=== PATIENT | female | born 1990 | race Hispanic/Latino ===

== ENCOUNTER 2019-12-30 17:03 | Emergency (ER) | payer SELFPAY ==
[2019-12-30 17:06] VITALS: BP 144/82; PULSE 97; RESP 16; TEMP 37.2; O2SAT 99; BMI 37.3
--- NOTE | 2019-12-30 17:20 | ED.VIS.URI ---
History of Present Illness Chief Complaint: Ear Problem Informant: Patient, Family Limited: Language barrier Onset: Weeks - 1 week Context: Gradual Onset Timing: Continuous Quality: aching Location: both ears Current Severity: Moderate Maximum Severity: Severe Worsened by: - - nothing Relieved by: NSAIDs Associated Symptoms: Negative for: Nasal Congestion, Headache, Sinus Pressure, Myalgias, Nausea, Vomiting, Diarrhea, Shortness of Breath, Chest Pain, Nonproductive cough, Hemoptysis, Productive Cough Narrative: 29-year-old female presents with bilateral ear pain. Patient has been having worsening pain in both ears over the last week. She states that she has noticed some white drainage from both ear canals as well. She has not had decreased hearing. She does usually clean her ears out with Q-tips. She has no sore throat or cough or congestion headache or neck pain and she does not feel lightheaded or dizzy. Denies history of similar symptoms. Prior similar symptoms: No Recent Illness/Hospitalization: No Past Medical History - Allergies and Home Meds Allergies/Adverse Reactions: Allergies No Known Allergies Allergy (Verified 12/30/19 17:05) Primary Care Physician: Rashel Kenny MD [STAFF PHYSICIAN] - 1 Week if not improving Prior records reviewed: Yes Past Medical History: None Surgical History: - - Lives: With Family Smoking Status: Never smoker Alcohol: None Drugs: None Review of Systems All systems negative except as indicated General: Denies: Chills, Fever, Sweats Eyes: Denies: Visual changes - bilaterally, Diplopia ENT: Reports: Bilateral ear pain. Denies: Rhinorrhea, Sore throat Cardiovascular: Denies: Chest pain, Palpitations Respiratory: Denies: Dyspnea, Cough, Dyspnea on exertion Gastrointestinal: Denies: Abdominal pain, Nausea, Vomiting, Diarrhea, Melena, Hematochezia Genitourinary: Denies: Dysuria, Hematuria, Frequency Musculoskeletal: Denies: Back pain, Extremity Pain Skin: Denies: Rash, Wounds Neurological: Denies: Headache, Weakness, Numbness Physical Exam Vital Signs/Narrative: Vital Signs Temp Pulse Resp BP Pulse Ox 12/30/19 17:06 98.9 F 97 16 144/82 H 99 Inital Vital Signs reviewed: Yes General: Well nourished, Well developed Head: Normocephalic, Atraumatic Eyes: Perrl, EOMI Ears: TM's clear, Pain with Movement of Right Tragus, Pain with Movement of Left Tragus, - - swelling, exudate bilateral external ear canals . Negative for: Right Mastoid Tenderness, Left Mastoid Tenderness Nose: Normal Inspection, No Rhinorrhea Mouth/Throat: Normal Inspection, No Posterior Erythema Neck: Supple, Nontender Cardiovascular: Regular rate, Regular rhythm, No murmurs Respiratory: No distress, CTA bilaterally, Chest nontender Abdomen: Soft, Nontender, Nondistended, Normal bowel sounds Back: Nontender, Normal Inspection Extremities: Nontender, No edema Skin: Normal color, No rash Neurological: Alert, Oriented x3, Cranial nerves II-XII grossly intact, Normal Strength, Normal Sensation Psychological: Normal affect, Normal Mood Diagnostic/Tx/Re-eval - Medical Decision Making Exam consistent with bilateral otitis externa. Discussed with patient discontinuing cleaning her ears with Q-tips. Will prescribe Ciprodex. Discussed proper use. Discussed return precautions. She will continue NSAIDs at home for pain. She was agreeable with plan. ED Disposition - Plan for ED Patient: Disposition: Home or Assisted Living Diagnosis: Otitis externa of both ears Instructions: ED Otitis Externa Prescriptions: Ciprofloxacin/Hydrocortisone [Cipro Hc Otic Suspension] 3 drp OT BID #10 ml Transmission Status: Received by [id number] Referrals: Rashel Kenny MD [STAFF PHYSICIAN] - 1 Week if not improving
== END 2019-12-30 17:45 | disposition home or self-care (01) ==
PROVIDERS: Emergency Provider Physician Assistant Medical
DX: H60.93 Unspecified otitis externa, bilateral (principal)
CPT/HCPCS: 99282

== ENCOUNTER 2021-07-01 06:47 | Inpatient (IN) | payer SELFPAY ==
[2021-07-01] VITALS (17 sets, daily range): BP systolic 104–138; BP diastolic 51–80; PULSE 71–91; RESP 16; TEMP 36.3–37.2; O2SAT 95–99; BMI 37.5
[2021-07-01] MEDS: Lactated Ringers 1,000 ML 200 ML IV (06:55)
--- NOTE | 2021-07-01 07:05 | HP.PCM.OB_ITS ---
HPI - General General Date of Admission: 07/01/21 HPI Narrative NELDA ORNELAS, is a 30 F at 40.1 weeks gestation who presents in spontaneous active labor. She started having contractions yesterday. Denies any loss of fluid or vaginal bleeding. Positive movement. Patient has history of primary section with first delivery followed by three successful VBACs. She desires another . complicated by obesity and language barrier. Maternal Data Information FELICITAS Calculator Estimated Delivery Date Method Current WG Current Estimate 06/30/21 Manual 40w 1d PFSH PFSH Home Medications ciprofloxacin-hydrocortisone 3 drp OT BID #10 ml 12/30/19 [Rx Last Taken Unknown] Allergy/AdvReac Type Severity Reaction Status Date / Time No Known Allergies Allergy Verified 12/30/19 17:05 Social History Smoking Status: Never smoker History Elective abortions Hx Para 3 Spontaneous abortions Hx # Term Pregnancies Ectopic pregnancies Hx # Pregnancies Multiple births # of living children NST FHR Rate Baby A Baseline: 140 Variability:: Moderate Accelerations:: 15 x 15 Decelerations:: None NST Reactive:: Yes FHR Category:: Category I Uterine Activity:: 1-3 palpate strong and relaxed in between ROS Eyes Eyes: Denies blurry vision, change in vision or spots in vision ENT HEENT: Denies dizziness or headache(s) Cardiovascular Cardiovascular: Denies abdominal pain, chest pain or dyspnea Respiratory/Chest Respiratory/Chest: Denies cough, dyspnea, shortness of breath at rest or shortness of breath with exertion Gastrointestinal Gastrointestinal: Denies abdominal pain, diarrhea or vomiting Genitourinary Genitourinary: Denies change in urinary stream, difficulty urinating or dysuria Musculoskeletal Musculoskeletal: Reports none Integumentary Integumentary: Denies rash Neurologic Neurologic: Denies dizziness, headache(s), memory loss or weakness Psychiatric Psychiatric: Reports none Vital Signs Vital Signs Vital Signs: 07/01/21 06:43 07/01/21 06:44 Temperature 98.0 F Pulse Rate 88 Blood Pressure 137/80 H BP Systolic 137 BP Diastolic 80 Physical Exam Const alert, oriented x3 and no apparent distress General Appearance: cooperative Orientation / Consciousness: awake Exam Limitations: no limitations HEENT normocephalic Head and Scalp: normal to inspection Eyes General Eye: normal appearance of both eyes Neck full ROM and no lymphadenopathy Lymph Lymphatic: no lymphadenopathy noted Chest inspection of chest normal Resp normal respiratory effort, normal air movement and clear to auscultation bilaterally Effort and Inspection: able to speak in complete sentences and symmetric chest movement Cardio regular rate and regular rhythm GI normal to inspection, nondistended, normoactive bowel sounds Manual OB Exam: dilated 7 and other bulging bag of water Back/Spine normal ROM Extremity full ROM and no calf tenderness Skin no rashes or lesions noted General Skin Exam: no breakdown Neuro oriented x3 and CN's II-XII intact bilaterally Psych mental status grossly normal and thought process normal Labs Labs Labs: Blood Type A POSITIVE Antibody Screen NEGATIVE Hct 37.2 % (37-47) Hgb 12.4 g/dl (12.0-15.0) Obstetrics US Rhogam given: No Rubella- immune HB- neg HC- neg HIV- NR RPR- NR GBS- neg Assessment & Plan (1) 40 weeks gestation of : (2) Obesity affecting , antepartum: (3) [place] Citizen speaking patient: (4) Hx successful (vaginal after ), currently : (5) Spontaneous onset of labor: PLAN: Admit to labor and delivery Routine labs Start IV and titrate per orders Epidural if indicated GBS negative Anticipate Dr. Farnsworth notified and in route to unit
[2021-07-01 07:10] LABS: Absolute Neutrophil Count 7.4 X10^3/uL (2.0-7.7); Basophil# 0.03 X10^3/uL; Basophil% 0.3 % (0-1); Eosinophil# 0.11 X10^3/uL; Eosinophils% 1.1 % (0-5); Hemoglobin 11.4 g/dL (12.0-15.0); Lymphocyte % 15.5 % (19-41); Mean Corp Hgb Conc 32.6 g/dL (32-36); Mean Corpuscular Hgb 28.1 pg (27.0-32.0); Mean Corpuscular Volume 86.4 fL (81-99); Mean Platelet Vol. 10.6 fl (6.2-12.0); Monocyte# 0.56 X10^3/uL; Monocyte% 5.8 % (0-10); NRBC Flagged by Analyzer 0 % (0-5); Neutrophil # 7.42 X10^3/uL (2.7-7.7); Neutrophil % 76.9 % (47-70); Platelet Count 220 K/mm3 (150-450); RBC Distribution Width CV 15.5 % (11.6-14.6); RBC Distribution Width SD 48.8 fl (35.1-43.9); Red Blood Count 4.05 M/mm3 (4.2-5.4); White Blood Count 9.7 K/mm3 (4.4-11.0)
--- NOTE | 2021-07-01 09:04 | EX.PCM.OBRPT ---
Maternal Data Information FELICITAS Calculator Estimated Delivery Date Method Current WG Current Estimate 06/30/21 Manual 40w 1d Final FELICITAS: 06/26/21 Gestational age: 40&5 Vaginal Delivery Maternal Presentation Maternal Presentation: Active Labor Operative Information Date of Procedure: 07/01/21 Pre-Operative Diagnosis: Trial of labor after section Post-Operative Diagnosis: Same Surgery / Procedure Performed: Spontaneous Vaginal Delivery and Type of Anesthesia: None Estimated Blood Loss: 250ml Findings Description of Procedure: Patient prepped & draped when C/C/+1. She pushed well to deliver the head. head gently guided to allow delivery of anterior and posterior shoulders. No excess traction placed on head. Body delivered and 3VC clamped & cut. Placenta delivered with gentle traction and good uterine tone obtained. Presentation: RANI Amniotic Membrane Rupture Type: Artificial Amniotic Fluid Description: Moderate meconium Placental Delivery Description: Expressed Placenta Disposition: [facility] Specimen(s) Removed: Placenta Cord Vessel Description: 3 Vessels Cord Entanglement: None Infant A Gender: Female (1 minute): 9 (5 minute): 9 Delayed Cord Clamping: No Post Vaginal Delivery Medications Given After Delivery: IV Pitocin Episiotomy Description: None Laceration: None Complication Complications: None
[2021-07-01] MEDS: Oxytocin 30 units/NS 500 ml 30 UNITS/500 ML IV.SOLN 334 UNITS IV (09:31)
[2021-07-01] MEDS: Ibuprofen 600 MG Tablet PO (10:07)
[2021-07-01] MEDS: 0.9% Saline Lock 10 ML Syringe IV (12:09)
[2021-07-01] MEDS: Acetaminophen 500 MG Tablet 1000 MG PO (12:22)
[2021-07-02 01:17] VITALS: BP 110/58; PULSE 86; RESP 16; TEMP 36.3; O2SAT 96
[2021-07-02 04:33] VITALS: BP 112/63; PULSE 72; RESP 16; TEMP 36.1; O2SAT 98
[2021-07-02 07:31] VITALS: BP 115/60; PULSE 75; RESP 16; TEMP 36.7; O2SAT 96
--- NOTE | 2021-07-02 08:38 | PCM.PN.OB ---
Subjective Subjective Doing well per patient and nursing staff. Ambulating and taking PO without difficulty. Voiding and passing flatus. Pain controlled. , services for assistance. Denies headache, visual changes, chest pain, shortness of breath, leg pain or increased bleeding. Lochia normal. Objective Data Objective Data Vital Signs: Vital Signs Temp Pulse Resp BP Pulse Ox 98.0 F 75 16 115/60 96 07/02/21 07:31 07/02/21 07:31 07/02/21 07:31 07/02/21 07:31 07/02/21 07:31 Oxygen Delivery Method Room Air Weight: 212 lb Body Mass Index (BMI) 37.5 Intake & Output: Intake and Output for Last 24 Hours 06/30/21 07/01/21 07/02/21 23:59 23:59 23:59 Intake Total 1020.00 / 1020.00 Output Total 1400 / 1400 Balance -380.00 / -380.00 Lab / Micro Data Result Diagrams: 07/01/21 06:55 Micro: Microbiology 07/01/21 06:55 Nasal Secretion SARS-CoV-2 Antigen (Rapid) - Final ROS Constitutional Constitutional: Reports systems reviewed and no addt'l complaints, except as documented; Denies headache(s) Eyes Eyes: Denies acute decrease in peripheral vision, blurry vision or change in vision ENT HEENT: Reports systems reviewed and no addt'l complaints, except as documented Cardiovascular Cardiovascular: Denies chest pain or dizziness Respiratory/Chest Respiratory/Chest: Denies cough, dyspnea, dyspnea on exertion, shortness of breath at rest or shortness of breath with exertion Gastrointestinal Gastrointestinal: Denies abdominal pain, diarrhea, nausea or vomiting Genitourinary Genitourinary: Denies abdominal discomfort Musculoskeletal Musculoskeletal: Denies limited range of motion Integumentary Integumentary: Reports systems reviewed and no addt'l complaints, except as documented Neurologic Neurologic: Reports systems reviewed and no addt'l complaints, except as documented Psychiatric Psychiatric: Reports systems reviewed and no addt'l complaints, except as documented Endocrine Endocrinology: Reports systems reviewed and no addt'l complaints, except as documented Hematologic/Lymphatic Hematologic/Lymphatic: Reports systems reviewed and no addt'l complaints, except as documented Allergic/Immunologic Allergic/Immunologic: Reports systems reviewed and no addt'l complaints, except as documented Physical Exam Const alert and oriented x3 General Appearance: cooperative Orientation / Consciousness: awake, oriented to person, oriented to place and oriented to time Exam Limitations: no limitations HEENT normocephalic Head and Scalp: normal to inspection, normocephalic and atraumatic Face and Sinus: normal facial exam Eyes General Eye: normal appearance of both eyes Neck full ROM Chest Chest: symmetrical chest wall rise Resp normal respiratory effort and normal air movement Auscultation: clear to auscultation bilaterally Cardio regular rate, regular rhythm, S1 normal heart sound, S2 normal heart sound, no murmurs, no rub, no gallops and no clicks GI normal to inspection, nondistended, normoactive bowel sounds and non-tender GI Narrative: fundus firm 2 below U appearance of the vagina normal Bladder / Kidney Exam: no CVA tenderness Back/Spine normal ROM Extremity normal to inspection and full ROM Skin no rashes or lesions noted Neuro oriented x3, CN's II-XII intact bilaterally and moves all extremities Sensorium / Orientation: awake, alert and oriented to person Motor Exam: clonus absent Deep Tendon Reflexes: Rt Patellar (L4): 2+ and Lt Patellar (L4): 2+ Assessment & Plan (1) (vaginal after ): PLAN: 1) Routine PP care 2) Pain management 3) VSS 4) 5) Follow up in 2 weeks and 6 weeks PP
--- NOTE | 2021-07-02 08:41 | PCM.DC.SUM ---
Providers Date of Admission: 07/01/21 Primary Care Physician: Heather Primary Care Phys Reason For Visit: VAGINAL DELIVERY Diagnosis Discharge Diagnosis (1) (vaginal after ): Status: Acute Code(s): O34.219 - Maternal care for unspecified type scar from previous delivery Medications at Discharge Home Medications vit-iron fum-folic ac 1 tab PO DAILY 07/01/21 acetaminophen 1,000 mg PO Q6H PRN PRN #0 tab 07/02/21 ibuprofen 600 mg PO Q6H PRN PRN #30 tab 07/02/21 Weight / BMI Weight Weight: 212 lb Body Mass Index (BMI) 37.5 ABG / Lab / Microbiology Data Result Diagrams: 07/01/21 06:55 Microbiology: Microbiology 07/01/21 06:55 Nasal Secretion SARS-CoV-2 Antigen (Rapid) - Final Meaningful Use Info Meaningful Use Diagnoses (Choose all that apply): None applicable Discharge Plan Admission Admit Date/Time: 07/01/21 06:47 Primary Reason for Your Visit: Vaginal Delivery Attending Provider: Ilana Richardson Primary Care Provider: Care Physician,Heather Primary Discharge Orders/Prescriptions Prescriptions: New acetaminophen 500 mg Tablet 1,000 mg PO Q6H PRN PRN (Reason: Pain 1-10 Or Fever) Qty: 0 RF: 0 ibuprofen 600 mg Tablet 600 mg PO Q6H PRN PRN (Reason: Pain Score 1-3) Qty: 30 RF: 0 Continued vit-iron fum-folic ac 60 mg iron-1 mg Tablet 1 tab PO DAILY RF: 0 Discontinued aspirin 81 mg Capsule 81 mg PO DAILY RF: 0 Referrals / Follow Up: Ilana Richardson CNM [Certified Nurse [employer]] - (2 weeks and 6 weeks) Care Physician,No Primary [Primary Care Provider] - Disposition Disposition (needs filled in before D/C Order can be placed): Home, Self Care
[2021-07-02 14:35] VITALS: BP 108/46; PULSE 84; RESP 16; TEMP 36.2; O2SAT 96
== END 2021-07-02 15:40 | disposition home or self-care (01) | DRG 807 ==
LOC: WPOUT 06:48 → WP 06:48
PROVIDERS: Admitting Provider Advanced Practice Midwife; Referring Provider Advanced Practice Midwife; Visit Provider Advanced Practice Midwife
DX: O34.219 Maternal care for unspecified type scar from previous cesarean delivery (principal); Z37.0 Single live birth; O77.0 Labor and delivery complicated by meconium in amniotic fluid; O99.214 Obesity complicating childbirth; E66.9 Obesity, unspecified; Z3A.40 40 weeks gestation of pregnancy; Z75.8 Other problems related to medical facilities and other health care
CPT/HCPCS: 59025; 59050; 85025; 86850; 86900; 86901; 87426; 99218; J7120; A4216; G0378

== ENCOUNTER 2022-02-15 12:16 | Emergency (ER) | payer SELFPAY ==
[2022-02-15 12:18] VITALS: BP 136/86; PULSE 80; RESP 17; TEMP 37.2; O2SAT 97; BMI 34.3
--- NOTE | 2022-02-15 12:34 | EX.ED.GENINJ ---
HPI History of Present Illness Chief Complaint: Other, Pain/Inj Narrative Narrative: 31-year-old female with history of otitis externa presenting with left ear pain which has been worse for couple of days. She reports swimming earlier this week. She states her right ear is itching. She states this feels similar to her previous presentation. Patient states she was on otic drops which did help. She denies systemic signs or symptoms. She states he is not using any Q-tips. PFSH PFS Medical History History of pre-term labor History of premature rupture of membranes (PPROM) Vaginal after Home Medications acetaminophen 500 mg tablet 1,000 mg PO Q6H PRN PRN Pain 1-10 Or Fever #0 tabs 07/02/21 [Rx Last Taken Unknown] ibuprofen 600 mg tablet 600 mg PO Q6H PRN PRN Pain Score 1-3 #30 tabs 07/02/21 [Rx Last Taken Unknown] ciprofloxacin 0.2 %-hydrocortisone 1 % ear drops,suspension (Cipro HC) 3 drp EACH EAR BID 7 days #10 mL 02/15/22 [Rx Last Taken Unknown] Allergy/AdvReac Type Severity Reaction Status Date / Time No Known Allergies Allergy Verified 02/15/22 12:21 Surgical History (Updated 07/01/21 @ 08:15 by Deysi Hunt) Previous section Social History Smoking Status: Never smoker ROS ROS ED Constitutional Constitutional ED: Denies chills or fever(s) Eyes Eyes: Denies change in vision ENT ENT ED: Reports ear pain right; Denies rhinorrhea or sore throat Cardiovascular Cardiovascular: Denies chest pain or palpitations Respiratory/Chest Respiratory/Chest: Denies cough or dyspnea Gastrointestinal Gastrointestinal: Denies abdominal pain or constipation Genitourinary Genitourinary ED: Denies dysuria or hematuria Musculoskeletal Musculoskeletal: Denies arthralgias or back pain Integumentary Denies abscess Neurologic Neurologic: Denies headache(s) or paresthesias EXAM Physical Exam Const Vital Signs: 02/15/22 12:18 02/15/22 12:24 Temperature 99.0 F Temperature Source Oral Pulse Rate 80 Respiratory Rate 17 Respiratory Pattern Normal Blood Pressure 136/86 H Blood Pressure Mean 102 Pulse Ox 97 Oxygen Delivery Method Room Air Positive well nourished General Appearance ED: NAD HEENT HEENT Narrative: Left external auditory canal with mild edema. Left TM is normal. There is pain with movement of the left tragus. Right TM and ear canal are normal appearing. atraumatic Eyes PERRL Chest Wall inspection of chest normal Resp normal respiratory effort and clear to auscultation bilaterally Cardio regular rhythm Rate: regular rate Neuro oriented x3 and CN's II-XII intact bilaterally Motor Exam: strength 5/5 throughout Psych mental status grossly normal and thought process normal Skin no rashes or lesions noted MDM MDM MDM Narrative Medical decision making narrative: 31-year-old female with left ear pain and right ear itching. She states the left ear started with itching is now more painful. She states she has a history of otitis external in the past. This was treated with Cipro. I will have her do this in both ears with first dose in the ER. Patient can follow-up with ENT since this appears to be recurrent. Patient discharged home in stable condition. Impression: 1. Bilateral otitis externa Lab Data Attestation: I reviewed the patient's lab results. Discharge Plan Triage Chief Complaint: Other, Pain/Inj ED Provider: Kailash Crockett Dx/Rx/DC Orders Instructions: ED External Ear Infection (Adult) Prescriptions: New Cipro HC 0.2-1 % drops,suspension 3 drp EACH EAR BID 7 Days Qty: 10 0RF No Action acetaminophen 500 mg Tablet 1,000 mg PO Q6H PRN PRN (Reason: Pain 1-10 Or Fever) Qty: 0 0RF ibuprofen 600 mg Tablet 600 mg PO Q6H PRN PRN (Reason: Pain Score 1-3) Qty: 30 0RF Primary Care Provider: Care Physician,No Primary Referrals: García Peña MD [Med Staff - Active Staff] - 3-5 Days Care Physician,No Primary [Primary Care Provider] - Disposition Disposition: Home, Self Care
== END 2022-02-15 12:55 | disposition home or self-care (01) ==
LOC: ED 12:46
PROVIDERS: Emergency Provider Student in an Organized Health Care Education/Training Program; Visit Provider Student in an Organized Health Care Education/Training Program
DX: H60.93 Unspecified otitis externa, bilateral (principal)
CPT/HCPCS: 99282